=== PATIENT | female | born 2000 | race Hispanic/Latino ===

== ENCOUNTER → 2020-04-13 | Outpatient (CLI) | payer OTHER | LOC: YCFC.O 15:18 | PROVIDERS: ATTEND Family Medicine | DX: Z20.828 Contact with and (suspected) exposure to other viral communicable diseases (principal) ==

== ENCOUNTER → 2020-07-16 | Outpatient (CLI) | payer SELFPAY | LOC: YCFC.O 16:35 | PROVIDERS: ATTEND Nurse Practitioner Family | DX: R53.83 Other fatigue (principal); R25.2 Cramp and spasm; E55.9 Vitamin D deficiency, unspecified; E53.8 Deficiency of other specified B group vitamins ==